=== PATIENT | female | born 1975 | race Asian ===

== ENCOUNTER 2016-09-30 11:11 | Emergency (ER) | payer SELFPAY ==
[~2016-09-30] VITALS: Ht 157.5 cm; Wt 63.6 kg
[~2016-09-30 11:11] MED LIST: ASCO500 PO; [UNRECOGNIZED DRUG - CODE] PO
[2016-09-30 11:32] VITALS: BP 153/109
[2016-09-30] MEDS ORDERED: ACETAMINOPHEN 325 MG TABLET PO ONE (12:00)
== END 2016-09-30 12:16 | disposition home or self-care (01) ==
LOC: EMS 11:12
DX: S81.832A Puncture wound without foreign body, left lower leg, initial encounter (principal); X58.XXXA Exposure to other specified factors, initial encounter; Y93.89 Activity, other specified; Y92.9 Unspecified place or not applicable; Y99.9 Unspecified external cause status
CPT/HCPCS: 99283